=== PATIENT | male | born 1940 | race African-American/Black ===

== ENCOUNTER 2018-01-22 10:01 | Inpatient (IN) ==
[2018-01-22] MEDS ORDERED: PANTOPRAZOLE 40 MG VIAL IV STA (10:38)
[2018-01-22] MEDS ORDERED: SODIUM CHLORIDE 0.9% 1,000 ML IV STA ×2 (10:38→11:00)
[2018-01-22 11:09] LABS: Basophils % 0.2 % (0.0-0.8); Eosinophils # 0.1 10*3/uL (0.0-0.87); Eosinophils % 0.8 % (0.00-10.9); Hematocrit 28.2 VOL% (42.0-52.0); Hemoglobin 8.6 GM/DL (14.0-18.0); Immature Granulocytes % 0.6 %; Immature Granulocytes Absolute 0.04 #; Lymphocytes # 1.5 10*3/uL (1.4-4.0); Lymphocytes % 23.4 % (21.2-54.2); Mean Corpuscular HGB Conc 30.5 GM/DL (32-36); Mean Corpuscular Hemoglobin 31 PG (27-34); Mean Corpuscular Volume 101.1 FL (87-102); Mean Platelet Volume 10.8 FL (9.6-12.0); Monocytes # 0.3 10*3/uL (0.11-0.8); Monocytes % 4.4 % (1.7-12.7); NRBC # 0.05 10*3/uL; Neutrophils # 4.6 10*3/uL (1.4-7.4); Neutrophils % 70.6 % (38.7-73.9); Platelet Count 183 T/CUMM (130-400); Red Blood Count 2.79 MC/CUMM (3.8-5.5); Red Cell Distribution Width 16.7 % (9.3-17.3); White Blood Count 6.6 T/CUMM (4-12)
[2018-01-22 11:23] LABS: INR 1.1; PT Patient Result 11.4 SECS; Partial Thromboplastin Time 23.9 SECS (0-40)
[2018-01-22 11:40] LABS: Albumin 3.3 G/DL (3.4-5.0); Bilirubin,Total 0.7 MG/DL (0.2-1.0); Osmolality,Calculated 290.8 MOS/KG (273-304); Potassium 4.5 MMOL/L (3.5-5.1); Total Protein 6.9 G/DL (6.4-8.3)
[2018-01-22] MEDS ORDERED: ONDANSETRON 4 MG/2 ML VIAL IV PRN (13:25)
[2018-01-22] MEDS ORDERED: ACETAMINOPHEN 325 MG TABLET PO PRN (13:25)
[2018-01-22] MEDS: SODIUM CHLORIDE 0.9% 1,000 ML IV SCH (15:06)
[2018-01-22] MEDS: PANTOPRAZOLE 40 MG TABLET PO SCH (22:10)
[2018-01-23] MEDS: SODIUM CHLORIDE 0.9% 1,000 ML IV SCH (02:10)
[2018-01-23 05:50] LABS: Albumin 2.9 G/DL (3.4-5.0); Bilirubin,Total 1.2 MG/DL (0.2-1.0); Calcium 8.5 MG/DL (8.5-10.1); Osmolality,Calculated 287.8 MOS/KG (273-304); Total Protein 5.8 G/DL (6.4-8.3)
[2018-01-23 06:31] LABS: Basophils % 0.4 % (0.0-0.8); Eosinophils # 0.1 10*3/uL (0.0-0.87); Eosinophils % 1.7 % (0.00-10.9); Immature Granulocytes % 0.2 %; Immature Granulocytes Absolute 0.01 #; Lymphocytes # 1.5 10*3/uL (1.4-4.0); Lymphocytes % 32.9 % (21.2-54.2); Mean Corpuscular HGB Conc 30.4 GM/DL (32-36); Mean Corpuscular Hemoglobin 31 PG (27-34); Mean Corpuscular Volume 100.4 FL (87-102); Mean Platelet Volume 11.3 FL (9.6-12.0); Monocytes # 0.3 10*3/uL (0.11-0.8); Monocytes % 7.4 % (1.7-12.7); NRBC # 0.03 10*3/uL; Neutrophils # 2.6 10*3/uL (1.4-7.4); Neutrophils % 57.4 % (38.7-73.9); Platelet Count 153 T/CUMM (130-400); Red Blood Count 2.29 MC/CUMM (3.8-5.5); Red Cell Distribution Width 16.9 % (9.3-17.3); White Blood Count 4.6 T/CUMM (4-12)
[2018-01-23] MEDS: PANTOPRAZOLE 40 MG TABLET PO SCH ×2 (08:04→20:09)
[2018-01-23] MEDS ORDERED: SODIUM CHLORIDE 0.9% 1,000 ML IV PRN (08:12)
[2018-01-23] MEDS ORDERED: PANTOPRAZOLE 40 MG TABLET PO SCH (09:00)
[2018-01-23] MEDS: FERROUS SULFATE 325 MG TABLET PO SCH ×2 (12:43→22:20)
[2018-01-23] MEDS: ATORVASTATIN 80 MG TABLET PO SCH (12:44)
[2018-01-23 15:12] LABS: Hemoglobin 8.8 GM/DL (14.0-18.0)
[2018-01-23] MEDS ORDERED: PHENYLEPH PO SCH (21:00)
[2018-01-23] MEDS ORDERED: GUAIFEN PO SCH (21:00)
[2018-01-23] MEDS ORDERED: ACETAMINOPHN PO SCH (21:00)
[2018-01-24 04:32] LABS: Basophils % 0.2 % (0.0-0.8); Eosinophils # 0.1 10*3/uL (0.0-0.87); Eosinophils % 1.7 % (0.00-10.9); Hemoglobin 8.4 GM/DL (14.0-18.0); Immature Granulocytes % 0.6 %; Immature Granulocytes Absolute 0.03 #; Lymphocytes # 1.4 10*3/uL (1.4-4.0); Lymphocytes % 30.1 % (21.2-54.2); Mean Corpuscular HGB Conc 31.1 GM/DL (32-36); Mean Corpuscular Hemoglobin 30 PG (27-34); Mean Corpuscular Volume 95.4 FL (87-102); Mean Platelet Volume 11.1 FL (9.6-12.0); Monocytes # 0.4 10*3/uL (0.11-0.8); Monocytes % 7.6 % (1.7-12.7); NRBC # 0.02 10*3/uL; Neutrophils # 2.8 10*3/uL (1.4-7.4); Neutrophils % 59.8 % (38.7-73.9); Platelet Count 149 T/CUMM (130-400); Red Blood Count 2.83 MC/CUMM (3.8-5.5); Red Cell Distribution Width 17.1 % (9.3-17.3); White Blood Count 4.7 T/CUMM (4-12)
[2018-01-24 04:57] LABS: Calcium 8.2 MG/DL (8.5-10.1); Osmolality,Calculated 284.8 MOS/KG (273-304); Potassium 3.9 MMOL/L (3.5-5.1)
[2018-01-24] MEDS: POLYETHYLENE GLYCOL POWDER 17 GM PACK PO SCH (09:23)
[2018-01-24] MEDS: PANTOPRAZOLE 40 MG TABLET PO SCH ×2 (09:27→21:55)
[2018-01-24] MEDS: FERROUS SULFATE 325 MG TABLET PO SCH ×2 (09:27→21:55)
[2018-01-24] MEDS: ALLOPURINOL 300 MG TABLET PO SCH (09:27)
[2018-01-24] MEDS: ATORVASTATIN 80 MG TABLET PO SCH (09:27)
[2018-01-25 06:20] LABS: Basophils % 0.2 % (0.0-0.8); Eosinophils # 0.1 10*3/uL (0.0-0.87); Eosinophils % 1.8 % (0.00-10.9); Hematocrit 29.1 VOL% (42.0-52.0); Hemoglobin 9.1 GM/DL (14.0-18.0); Immature Granulocytes % 0.6 %; Immature Granulocytes Absolute 0.03 #; Lymphocytes # 1.5 10*3/uL (1.4-4.0); Lymphocytes % 29.8 % (21.2-54.2); Mean Corpuscular HGB Conc 31.3 GM/DL (32-36); Mean Corpuscular Hemoglobin 30 PG (27-34); Mean Platelet Volume 11.2 FL (9.6-12.0); Monocytes # 0.4 10*3/uL (0.11-0.8); Monocytes % 7.2 % (1.7-12.7); NRBC # 0.03 10*3/uL; Neutrophils # 3.1 10*3/uL (1.4-7.4); Neutrophils % 60.4 % (38.7-73.9); Platelet Count 167 T/CUMM (130-400); Red Blood Count 3.03 MC/CUMM (3.8-5.5); Red Cell Distribution Width 16.9 % (9.3-17.3); White Blood Count 5.1 T/CUMM (4-12)
[2018-01-25 06:29] LABS: Calcium 8.4 MG/DL (8.5-10.1); Osmolality,Calculated 284.8 MOS/KG (273-304)
[2018-01-25] MEDS: POLYETHYLENE GLYCOL POWDER 17 GM PACK PO SCH (08:41)
[2018-01-25] MEDS: FERROUS SULFATE 325 MG TABLET PO SCH (08:41)
[2018-01-25] MEDS: ATORVASTATIN 80 MG TABLET PO SCH (08:41)
[2018-01-25] MEDS: PANTOPRAZOLE 40 MG TABLET PO SCH (08:41)
[2018-01-25] MEDS: ALLOPURINOL 300 MG TABLET PO SCH (08:41)
[2018-01-25 14:34] VITALS: BP 145/78
== END 2018-01-25 14:30 | disposition home or self-care (01) | DRG 378 ==
LOC: N.ED 10:01 → N.EDINP 13:25 → N.5E 14:34
PROVIDERS: ADMIT Internal Medicine; ATTEND Internal Medicine

== ENCOUNTER 2018-04-12 23:11 | Inpatient (IN) ==
[2018-04-12] MEDS ORDERED: ASPIRIN 325 MG TABLET PO STA (23:29)
[2018-04-12] MEDS ORDERED: ALUM/MAG/SIMETH/LIDO VISC 1:1 30 ML BOTTLE PO STA (23:29)
[2018-04-12 23:41] LABS: Basophils % 0.1 % (0.0-0.8); Eosinophils # 0.1 10*3/uL (0.0-0.87); Eosinophils % 0.8 % (0.00-10.9); Hematocrit 35.6 VOL% (42.0-52.0); Hemoglobin 11.1 GM/DL (14.0-18.0); Immature Granulocytes % 0.5 %; Immature Granulocytes Absolute 0.04 #; Lymphocytes # 1.5 10*3/uL (1.4-4.0); Lymphocytes % 18.8 % (21.2-54.2); Mean Corpuscular HGB Conc 31.2 GM/DL (32-36); Mean Corpuscular Hemoglobin 31 PG (27-34); Mean Corpuscular Volume 97.8 FL (87-102); Mean Platelet Volume 12.1 FL (9.6-12.0); Monocytes # 0.3 10*3/uL (0.11-0.8); Monocytes % 4.3 % (1.7-12.7); Neutrophils % 75.5 % (38.7-73.9); Platelet Count 180 T/CUMM (130-400); Red Blood Count 3.64 MC/CUMM (3.8-5.5); Red Cell Distribution Width 17.5 % (9.3-17.3); White Blood Count 7.9 T/CUMM (4-12)
[2018-04-13 00:53] LABS: INR 1.4; PT Patient Result 15.5 SECS
[2018-04-13 01:16] LABS: Albumin 3.4 G/DL (3.4-5.0); Bilirubin,Total 1.2 MG/DL (0.2-1.0); Osmolality,Calculated 286.3 MOS/KG (273-304); Potassium 4.1 MMOL/L (3.5-5.1); Total Protein 7.1 G/DL (6.4-8.3)
[2018-04-13] MEDS ORDERED: PIPERACILLIN/TAZOBACTAM 3,375 MG in SODIUM CHLORIDE 0.9% 100 ML IV ONE (04:01)
[2018-04-13] MEDS ORDERED: ACETAMINOPHEN 325 MG TABLET PO PRN (05:05)
[2018-04-13] MEDS ORDERED: ONDANSETRON 4 MG/2 ML VIAL IV PRN (05:05)
[2018-04-13 05:16] LABS: Basophils % 0.2 % (0.0-0.8); Eosinophils % 0.2 % (0.00-10.9); Hematocrit 33.6 VOL% (42.0-52.0); Hemoglobin 10.6 GM/DL (14.0-18.0); Immature Granulocytes % 0.3 %; Immature Granulocytes Absolute 0.02 #; Lymphocytes # 1.2 10*3/uL (1.4-4.0); Lymphocytes % 19.2 % (21.2-54.2); Mean Corpuscular HGB Conc 31.5 GM/DL (32-36); Mean Corpuscular Hemoglobin 30 PG (27-34); Monocytes # 0.3 10*3/uL (0.11-0.8); Monocytes % 4.5 % (1.7-12.7); Neutrophils # 4.8 10*3/uL (1.4-7.4); Neutrophils % 75.6 % (38.7-73.9); Platelet Count 177 T/CUMM (130-400); Red Cell Distribution Width 17.5 % (9.3-17.3); White Blood Count 6.4 T/CUMM (4-12)
[2018-04-13 07:22] LABS: Albumin 3.3 G/DL (3.4-5.0); Bilirubin,Total 2.2 MG/DL (0.2-1.0); Calcium 9.4 MG/DL (8.5-10.1); Osmolality,Calculated 281.4 MOS/KG (273-304); Potassium 4.2 MMOL/L (3.5-5.1)
[2018-04-13] MEDS: PANTOPRAZOLE 40 MG TABLET PO SCH (08:44)
[2018-04-13] MEDS: CARVEDILOL 25 MG TABLET PO SCH ×2 (11:16→20:47)
[2018-04-13] MEDS: LOSARTAN 25 MG TABLET PO SCH (11:16)
[2018-04-13] MEDS: ALLOPURINOL 300 MG TABLET PO SCH (11:20)
[2018-04-13] MEDS: DEXTROSE 5% NACL 0.45% 1,000 ML IV SCH ×3 (11:27→20:51)
[2018-04-13] MEDS: PIPERACILLIN/TAZOBACTAM 3,375 MG in SODIUM CHLORIDE 0.9% 100 ML IV SCH ×2 (12:51→20:46)
[2018-04-13] MEDS: guaiFENesin 200 MG/10 ML UDCUP PO PRN ×2 (15:25→20:54)
[2018-04-14] MEDS: PIPERACILLIN/TAZOBACTAM 3,375 MG in SODIUM CHLORIDE 0.9% 100 ML IV SCH ×3 (04:33→21:10)
[2018-04-14 04:38] LABS: Basophils % 0.1 % (0.0-0.8); Eosinophils % 0.4 % (0.00-10.9); Hematocrit 32.2 VOL% (42.0-52.0); Hemoglobin 9.9 GM/DL (14.0-18.0); Immature Granulocytes % 0.4 %; Immature Granulocytes Absolute 0.03 #; Lymphocytes # 1.4 10*3/uL (1.4-4.0); Lymphocytes % 19.4 % (21.2-54.2); Mean Corpuscular HGB Conc 30.7 GM/DL (32-36); Mean Corpuscular Hemoglobin 30 PG (27-34); Mean Corpuscular Volume 96.4 FL (87-102); Monocytes # 0.6 10*3/uL (0.11-0.8); Monocytes % 7.7 % (1.7-12.7); Neutrophils # 5.1 10*3/uL (1.4-7.4); Platelet Count 152 T/CUMM (130-400); Red Blood Count 3.34 MC/CUMM (3.8-5.5); Red Cell Distribution Width 17.4 % (9.3-17.3); White Blood Count 7.1 T/CUMM (4-12)
[2018-04-14 05:06] LABS: Albumin 2.9 G/DL (3.4-5.0); Bilirubin,Total 1.3 MG/DL (0.2-1.0); Calcium 8.5 MG/DL (8.5-10.1); Osmolality,Calculated 284.3 MOS/KG (273-304); Potassium 3.8 MMOL/L (3.5-5.1); Total Protein 6.2 G/DL (6.4-8.3)
[2018-04-14] MEDS: PANTOPRAZOLE 40 MG TABLET PO SCH (08:47)
[2018-04-14] MEDS: LOSARTAN 25 MG TABLET PO SCH (08:47)
[2018-04-14] MEDS: guaiFENesin 200 MG/10 ML UDCUP PO PRN ×3 (08:47→21:12)
[2018-04-14] MEDS: CARVEDILOL 25 MG TABLET PO SCH ×2 (08:47→21:12)
[2018-04-14] MEDS: ALLOPURINOL 300 MG TABLET PO SCH (08:47)
[2018-04-14] MEDS: DEXTROSE 5% NACL 0.45% 1,000 ML IV SCH ×2 (09:17→19:06)
[2018-04-14] MEDS ORDERED: MAGNESIUM SULF RIDER 2 GM in PREMIX 1 EACH IV PRN (13:29)
[2018-04-14] MEDS: POTASSIUM CHLORIDE 20 MEQ TABLET PO SCH (16:32)
[2018-04-14] MEDS: ASCORBIC ACID 500 MG TABLET PO SCH ×2 (16:32→21:11)
[2018-04-15] MEDS: PIPERACILLIN/TAZOBACTAM 3,375 MG in SODIUM CHLORIDE 0.9% 100 ML IV SCH ×3 (04:05→20:10)
[2018-04-15] MEDS: guaiFENesin 200 MG/10 ML UDCUP PO PRN (04:07)
[2018-04-15 04:50] LABS: Basophils % 0.1 % (0.0-0.8); Eosinophils # 0.1 10*3/uL (0.0-0.87); Eosinophils % 0.7 % (0.00-10.9); Hematocrit 29.3 VOL% (42.0-52.0); Hemoglobin 9.1 GM/DL (14.0-18.0); Immature Granulocytes % 0.4 %; Immature Granulocytes Absolute 0.03 #; Lymphocytes # 1.4 10*3/uL (1.4-4.0); Mean Corpuscular HGB Conc 31.1 GM/DL (32-36); Mean Corpuscular Hemoglobin 30 PG (27-34); Mean Corpuscular Volume 96.7 FL (87-102); Mean Platelet Volume 12.4 FL (9.6-12.0); Monocytes # 0.6 10*3/uL (0.11-0.8); Monocytes % 7.7 % (1.7-12.7); NRBC # 0.02 10*3/uL; Neutrophils # 5.4 10*3/uL (1.4-7.4); Neutrophils % 72.1 % (38.7-73.9); Platelet Count 151 T/CUMM (130-400); Red Blood Count 3.03 MC/CUMM (3.8-5.5); Red Cell Distribution Width 17.3 % (9.3-17.3); White Blood Count 7.4 T/CUMM (4-12)
[2018-04-15 05:20] LABS: Albumin 2.7 G/DL (3.4-5.0); Bilirubin,Total 2.5 MG/DL (0.2-1.0); Calcium 8.3 MG/DL (8.5-10.1); Osmolality,Calculated 284.1 MOS/KG (273-304); Potassium 3.9 MMOL/L (3.5-5.1)
[2018-04-15] MEDS: ASCORBIC ACID 500 MG TABLET PO SCH ×2 (08:42→20:05)
[2018-04-15] MEDS: PANTOPRAZOLE 40 MG TABLET PO SCH (08:45)
[2018-04-15] MEDS: POTASSIUM CHLORIDE 20 MEQ TABLET PO SCH (08:46)
[2018-04-15] MEDS: CARVEDILOL 25 MG TABLET PO SCH ×2 (08:46→20:05)
[2018-04-15] MEDS: LOSARTAN 25 MG TABLET PO SCH (08:46)
[2018-04-15] MEDS: ALLOPURINOL 300 MG TABLET PO SCH (08:46)
[2018-04-15] MEDS: DEXTROSE 5% NACL 0.45% 1,000 ML IV SCH ×3 (09:00→21:17)
[2018-04-16] MEDS: PIPERACILLIN/TAZOBACTAM 3,375 MG in SODIUM CHLORIDE 0.9% 100 ML IV SCH ×2 (06:30→15:30)
[2018-04-16] MEDS: DEXTROSE 5% NACL 0.45% 1,000 ML IV SCH (06:45)
[2018-04-16] MEDS ORDERED: LACTATED RINGERS 500 ML IV ONE (08:14)
[2018-04-16 08:55] LABS: PT Patient Result 11.3 SECS
[2018-04-16] MEDS ORDERED: fentaNYL 100 MCG/2 ML VIAL ONE ×2 (09:00→10:05)
[2018-04-16] MEDS ORDERED: PHENYLEPHRINE 1 MG/10 ML SYRINGE IV ONE (09:00)
[2018-04-16] MEDS ORDERED: ONDANSETRON 4 MG/2 ML VIAL ONE (09:00)
[2018-04-16] MEDS ORDERED: ROCURONIUM 100 MG/10 ML VIAL IV ONE (09:00)
[2018-04-16] MEDS ORDERED: SUCCINYLCHOLINE 200 MG/10 ML VIAL ONE (09:00)
[2018-04-16] MEDS ORDERED: LIDOCAINE 2% 5 ML VIAL ONE (09:00)
[2018-04-16] MEDS: CARVEDILOL 25 MG TABLET PO SCH ×2 (09:30→20:59)
[2018-04-16] MEDS: LOSARTAN 25 MG TABLET PO SCH (09:30)
[2018-04-16] MEDS: PANTOPRAZOLE 40 MG TABLET PO SCH (09:32)
[2018-04-16] MEDS: ALLOPURINOL 300 MG TABLET PO SCH (09:32)
[2018-04-16] MEDS: POTASSIUM CHLORIDE 20 MEQ TABLET PO SCH (09:32)
[2018-04-16] MEDS: ASCORBIC ACID 500 MG TABLET PO SCH ×2 (09:32→20:59)
[2018-04-16] MEDS ORDERED: INDOMETHACIN SUPP 50 MG SUPP RECTAL ONE (10:54)
[2018-04-16] MEDS ORDERED: ALBUTEROL/IPRATROPIUM 3 ML NEB RESP TX STA (13:32)
[2018-04-16] MEDS ORDERED: SIMETHICONE CHEW 80 MG TABLET PO PRN (16:14)
[2018-04-16 19:04] LABS: Troponin I 0.084 NG/ML (0.00-0.045)
[2018-04-17] MEDS: PIPERACILLIN/TAZOBACTAM 3,375 MG in SODIUM CHLORIDE 0.9% 100 ML IV SCH ×4 (00:15→23:08)
[2018-04-17] MEDS: DEXTROSE 5% NACL 0.45% 1,000 ML IV SCH ×4 (01:29→22:20)
[2018-04-17 05:38] LABS: Basophils % 0.2 % (0.0-0.8); Eosinophils # 0.1 10*3/uL (0.0-0.87); Eosinophils % 1.4 % (0.00-10.9); Hematocrit 30.4 VOL% (42.0-52.0); Hemoglobin 9.3 GM/DL (14.0-18.0); Immature Granulocytes % 0.4 %; Immature Granulocytes Absolute 0.02 #; Lymphocytes # 0.9 10*3/uL (1.4-4.0); Lymphocytes % 17.9 % (21.2-54.2); Mean Corpuscular HGB Conc 30.6 GM/DL (32-36); Mean Corpuscular Hemoglobin 30 PG (27-34); Mean Corpuscular Volume 97.1 FL (87-102); Mean Platelet Volume 12.3 FL (9.6-12.0); Monocytes # 0.4 10*3/uL (0.11-0.8); Monocytes % 7.3 % (1.7-12.7); Neutrophils # 3.6 10*3/uL (1.4-7.4); Neutrophils % 72.8 % (38.7-73.9); Platelet Count 151 T/CUMM (130-400); Red Blood Count 3.13 MC/CUMM (3.8-5.5); Red Cell Distribution Width 17.4 % (9.3-17.3); White Blood Count 4.9 T/CUMM (4-12)
[2018-04-17 06:03] LABS: Albumin 2.7 G/DL (3.4-5.0); Bilirubin,Total 1.5 MG/DL (0.2-1.0); Calcium 8.5 MG/DL (8.5-10.1); Total Protein 6.5 G/DL (6.4-8.3)
[2018-04-17] MEDS: LOSARTAN 25 MG TABLET PO SCH (09:38)
[2018-04-17] MEDS: CARVEDILOL 25 MG TABLET PO SCH ×2 (09:38→22:17)
[2018-04-17] MEDS: PANTOPRAZOLE 40 MG TABLET PO SCH (09:39)
[2018-04-17] MEDS: POTASSIUM CHLORIDE 20 MEQ TABLET PO SCH (09:39)
[2018-04-17] MEDS: ALLOPURINOL 300 MG TABLET PO SCH (09:39)
[2018-04-17] MEDS: ASCORBIC ACID 500 MG TABLET PO SCH ×2 (09:39→22:17)
[2018-04-17] MEDS ORDERED: LIDOCAINE 1%/EPI INJ 20 ML VIAL ONE (10:26)
[2018-04-17] MEDS ORDERED: TISSUE ADHESIVE 1 EACH APPLICATOR TOP ONE (10:26)
[2018-04-17] MEDS ORDERED: BUPIVACAINE 0.5% 50 ML VIAL ONE (10:26)
[2018-04-17] MEDS: FUROSEMIDE 40 MG TABLET PO SCH (15:41)
[2018-04-17] MEDS: SPIRONOLACTONE 25 MG TABLET PO SCH (15:41)
[2018-04-17] MEDS: guaiFENesin 200 MG/10 ML UDCUP PO PRN (17:50)
[2018-04-18 05:19] LABS: Basophils % 0.2 % (0.0-0.8); Eosinophils # 0.1 10*3/uL (0.0-0.87); Eosinophils % 2.4 % (0.00-10.9); Hematocrit 28.7 VOL% (42.0-52.0); Hemoglobin 8.9 GM/DL (14.0-18.0); Immature Granulocytes % 0.2 %; Immature Granulocytes Absolute 0.01 #; Lymphocytes # 1.1 10*3/uL (1.4-4.0); Lymphocytes % 25.2 % (21.2-54.2); Mean Corpuscular Hemoglobin 30 PG (27-34); Mean Corpuscular Volume 95.7 FL (87-102); Mean Platelet Volume 11.8 FL (9.6-12.0); Monocytes # 0.3 10*3/uL (0.11-0.8); Monocytes % 7.2 % (1.7-12.7); Neutrophils # 2.7 10*3/uL (1.4-7.4); Neutrophils % 64.8 % (38.7-73.9); Platelet Count 163 T/CUMM (130-400); Red Cell Distribution Width 17.2 % (9.3-17.3); White Blood Count 4.2 T/CUMM (4-12)
[2018-04-18 05:29] LABS: Calcium 8.4 MG/DL (8.5-10.1); Osmolality,Calculated 282.1 MOS/KG (273-304); Potassium 3.6 MMOL/L (3.5-5.1)
[2018-04-18] MEDS: PIPERACILLIN/TAZOBACTAM 3,375 MG in SODIUM CHLORIDE 0.9% 100 ML IV SCH ×3 (06:26→22:39)
[2018-04-18] MEDS: DEXTROSE 5% NACL 0.45% 1,000 ML IV SCH ×2 (07:15→17:00)
[2018-04-18] MEDS ORDERED: REGADENOSON 0.4 MG/5 ML SYRINGE IV ONE (11:59)
[2018-04-18] MEDS: FUROSEMIDE 40 MG TABLET PO SCH ×2 (13:24→19:21)
[2018-04-18] MEDS: SPIRONOLACTONE 25 MG TABLET PO SCH (13:24)
[2018-04-18] MEDS: CARVEDILOL 25 MG TABLET PO SCH ×2 (13:25→20:31)
[2018-04-18] MEDS: LOSARTAN 25 MG TABLET PO SCH (13:25)
[2018-04-18] MEDS: PANTOPRAZOLE 40 MG TABLET PO SCH (13:26)
[2018-04-18] MEDS: POTASSIUM CHLORIDE 20 MEQ TABLET PO SCH (13:26)
[2018-04-18] MEDS: ASCORBIC ACID 500 MG TABLET PO SCH ×2 (13:26→20:31)
[2018-04-18] MEDS: ALLOPURINOL 300 MG TABLET PO SCH (13:27)
[2018-04-19 04:27] LABS: Basophils % 0.2 % (0.0-0.8); Eosinophils # 0.1 10*3/uL (0.0-0.87); Eosinophils % 1.9 % (0.00-10.9); Hemoglobin 8.9 GM/DL (14.0-18.0); Immature Granulocytes % 0.4 %; Immature Granulocytes Absolute 0.02 #; Lymphocytes # 1.2 10*3/uL (1.4-4.0); Lymphocytes % 25.4 % (21.2-54.2); Mean Corpuscular HGB Conc 30.7 GM/DL (32-36); Mean Corpuscular Hemoglobin 29 PG (27-34); Mean Corpuscular Volume 95.1 FL (87-102); Monocytes # 0.3 10*3/uL (0.11-0.8); Monocytes % 6.7 % (1.7-12.7); NRBC # 0.02 10*3/uL; Neutrophils # 3.1 10*3/uL (1.4-7.4); Neutrophils % 65.4 % (38.7-73.9); Platelet Count 180 T/CUMM (130-400); Red Blood Count 3.05 MC/CUMM (3.8-5.5); Red Cell Distribution Width 17.2 % (9.3-17.3); White Blood Count 4.8 T/CUMM (4-12)
[2018-04-19 04:50] LABS: Albumin 2.8 G/DL (3.4-5.0); Bilirubin,Total 1.2 MG/DL (0.2-1.0); Calcium 8.8 MG/DL (8.5-10.1); Potassium 3.2 MMOL/L (3.5-5.1); Total Protein 6.6 G/DL (6.4-8.3)
[2018-04-19] MEDS ORDERED: FAMOTIDINE 20 MG TABLET PO ONE (06:00)
[2018-04-19] MEDS: PIPERACILLIN/TAZOBACTAM 3,375 MG in SODIUM CHLORIDE 0.9% 100 ML IV SCH ×3 (06:35→22:26)
[2018-04-19] MEDS: FUROSEMIDE 40 MG TABLET PO SCH ×2 (08:00→16:10)
[2018-04-19] MEDS: CARVEDILOL 25 MG TABLET PO SCH ×2 (08:45→20:35)
[2018-04-19] MEDS: LOSARTAN 25 MG TABLET PO SCH (08:45)
[2018-04-19] MEDS: ASCORBIC ACID 500 MG TABLET PO SCH ×2 (09:00→20:35)
[2018-04-19] MEDS: LACTATED RINGERS 1,000 ML IV SCH (09:35)
[2018-04-19] MEDS ORDERED: BUPIVACAINE 0.5% 50 ML VIAL ONE (09:42)
[2018-04-19] MEDS ORDERED: LIDOCAINE 1%/EPI INJ 20 ML VIAL ONE (09:42)
[2018-04-19] MEDS ORDERED: TISSUE ADHESIVE 1 EACH APPLICATOR TOP ONE (09:43)
[2018-04-19] MEDS ORDERED: SEVOFLURANE 1 UNIT/15 MINUTE INH ONE (11:34)
[2018-04-19] MEDS ORDERED: PROPOFOL 200 MG/20 ML VIAL IV ONE (11:34)
[2018-04-19] MEDS ORDERED: fentaNYL 100 MCG/2 ML VIAL ONE (11:34)
[2018-04-19] MEDS ORDERED: NEOSTIGMINE 10 MG/10 ML VIAL ONE (11:35)
[2018-04-19] MEDS ORDERED: PHENYLEPHRINE 1 MG/10 ML SYRINGE IV ONE (11:35)
[2018-04-19] MEDS ORDERED: ROCURONIUM 100 MG/10 ML VIAL IV ONE (11:35)
[2018-04-19] MEDS ORDERED: ONDANSETRON 4 MG/2 ML VIAL ONE (11:35)
[2018-04-19] MEDS ORDERED: GLYCOPYRROLATE 0.4 MG/2 ML VIAL ONE ×2 (11:35)
[2018-04-19] MEDS: MORPHINE 4 MG/1 ML VIAL IV PRN ×2 (12:47→17:30)
[2018-04-19] MEDS: SPIRONOLACTONE 25 MG TABLET PO SCH (15:52)
[2018-04-19] MEDS: PANTOPRAZOLE 40 MG TABLET PO SCH (15:53)
[2018-04-19] MEDS: POTASSIUM CHLORIDE 20 MEQ TABLET PO SCH (15:53)
[2018-04-19] MEDS: ALLOPURINOL 300 MG TABLET PO SCH (15:53)
[2018-04-19] MEDS: DEXTROSE 5% NACL 0.45% 1,000 ML IV SCH (20:39)
[2018-04-20] MEDS: PIPERACILLIN/TAZOBACTAM 3,375 MG in SODIUM CHLORIDE 0.9% 100 ML IV SCH ×2 (06:07→14:23)
[2018-04-20] MEDS: CARVEDILOL 25 MG TABLET PO SCH (08:37)
[2018-04-20] MEDS: PANTOPRAZOLE 40 MG TABLET PO SCH (08:37)
[2018-04-20] MEDS: ALLOPURINOL 300 MG TABLET PO SCH (08:37)
[2018-04-20] MEDS: LOSARTAN 25 MG TABLET PO SCH (08:37)
[2018-04-20] MEDS: POTASSIUM CHLORIDE 20 MEQ TABLET PO SCH (08:37)
[2018-04-20] MEDS: ASCORBIC ACID 500 MG TABLET PO SCH (08:37)
[2018-04-20] MEDS: SPIRONOLACTONE 25 MG TABLET PO SCH (08:38)
[2018-04-20] MEDS: FUROSEMIDE 40 MG TABLET PO SCH (08:38)
[2018-04-20] MEDS ORDERED: POTASSIUM CHLORIDE 20 MEQ TABLET PO ONE (08:51)
[2018-04-20] MEDS ORDERED: ASPIRIN CHEW 81 MG TABLET PO SCH (09:00)
[2018-04-20 09:04] LABS: Basophils % 0.2 % (0.0-0.8); Eosinophils # 0.1 10*3/uL (0.0-0.87); Eosinophils % 1.1 % (0.00-10.9); Hemoglobin 10.2 GM/DL (14.0-18.0); Immature Granulocytes % 0.4 %; Immature Granulocytes Absolute 0.02 #; Lymphocytes # 1.2 10*3/uL (1.4-4.0); Lymphocytes % 23.2 % (21.2-54.2); Mean Corpuscular HGB Conc 30.9 GM/DL (32-36); Mean Corpuscular Hemoglobin 30 PG (27-34); Mean Corpuscular Volume 96.2 FL (87-102); Mean Platelet Volume 11.2 FL (9.6-12.0); Monocytes # 0.3 10*3/uL (0.11-0.8); Neutrophils # 3.7 10*3/uL (1.4-7.4); Neutrophils % 69.1 % (38.7-73.9); Platelet Count 206 T/CUMM (130-400); Red Blood Count 3.43 MC/CUMM (3.8-5.5); Red Cell Distribution Width 17.2 % (9.3-17.3); White Blood Count 5.3 T/CUMM (4-12)
[2018-04-20 09:24] LABS: Bilirubin,Total 0.7 MG/DL (0.2-1.0); Calcium 8.8 MG/DL (8.5-10.1); Osmolality,Calculated 280.4 MOS/KG (273-304); Potassium 3.6 MMOL/L (3.5-5.1); Total Protein 7.3 G/DL (6.4-8.3)
[2018-04-20] MEDS: LACTATED RINGERS 1,000 ML IV SCH (11:06)
[2018-04-20 16:17] VITALS: BP 124/75
[2018-04-20] MEDS ORDERED: MAGNESIUM OXIDE 400 MG TABLET PO SCH (21:00)
== END 2018-04-20 16:22 | disposition home or self-care (01) | DRG 417 ==
LOC: N.ED 23:11 → N.EDINP 04-13 05:03 → N.3E 04-13 05:42
PROVIDERS: ADMIT Surgery; ATTEND Surgery
PROC: ERCPWSP (ICD-10-PCS; 2018-04-16 11:00)
PROC: LAPCHOL (2018-04-17 11:10)

== ENCOUNTER 2019-11-26 22:12 | Observation (INO) ==
[2019-11-27] MEDS ORDERED: ONDANSETRON 4 MG/2 ML VIAL IV STA (00:08)
[2019-11-27] MEDS ORDERED: MECLIZINE 25 MG TABLET PO STA (00:08)
[2019-11-27 00:16] LABS: Basophils % 0.2 % (0.0-0.8); Eosinophils % 0.4 % (0.00-10.9); Hematocrit 31.9 VOL% (42.0-52.0); Immature Granulocytes % 0.4 %; Immature Granulocytes Absolute 0.02 #; Lymphocytes # 1.3 10*3/uL (1.4-4.0); Mean Corpuscular HGB Conc 31.3 GM/DL (32-36); Mean Corpuscular Volume 102.9 FL (87-102); Mean Platelet Volume 11.7 FL (9.6-12.0); Monocytes % 5.3 % (1.7-12.7); NRBC # 0.05 10*3/uL; Neutrophils % 70.7 % (38.7-73.9); Platelet Count 164 T/CUMM (130-400); Red Cell Distribution Width 18.9 % (9.3-17.3); White Blood Count 5.6 T/CUMM (4-12)
[2019-11-27 00:30] LABS: INR 1.1; PT Patient Result 11.9 SECS (9.8-11.9)
[2019-11-27 00:38] LABS: Albumin 3.5 G/DL (3.4-5.0); Bilirubin,Total 0.8 MG/DL (0.2-1.0); Calcium 9.5 MG/DL (8.5-10.1); Total Protein 7.9 G/DL (6.4-8.3)
[2019-11-27] MEDS ORDERED: FUROSEMIDE 40 MG/4 ML VIAL IV STA (01:03)
[2019-11-27 01:59] LABS: Bacteria,Urine Occasional /HPF (Few); Bilirubin,Urine Negative (Negative); Blood, Urine Negative (Negative); Glucose,Urine (UA) Negative (Negative); Hyaline Casts,Urine 1 /LPF (0-3); Ketones,Urine Negative (Negative); Mucus,Urine Occasional /LPF (Occasional); Nitrite,Urine Negative (Negative); Protein,Urine Negative; RBC,Urine 2 /HPF (0-4); Sperm,Urine Occasional /HPF (Negative); Squamous Epithelial Cell,Urine Occasional /HPF (0-10); Urine Appearance CLEAR (Clear); Urine Color Yellow (Yellow); Urine Specific Gravity 1.017 (1.001-1.035); WBC,Urine 2 /HPF (0-6)
[2019-11-27] MEDS ORDERED: ACETAMINOPHEN 325 MG TABLET PO PRN (04:39)
[2019-11-27] MEDS ORDERED: ONDANSETRON 4 MG/2 ML VIAL IV PRN (04:39)
[2019-11-27] MEDS ORDERED: DOCUSATE SODIUM 100 MG CAPSULE PO PRN (04:39)
[2019-11-27 07:32] LABS: Risk Ratio 1.88; VLDL CHOLESTEROL 10.2 MG/DL
[2019-11-27] MEDS: ENOXAPARIN 40 MG/0.4 ML SYRINGE SUBCUT SCH (09:50)
[2019-11-27] MEDS: ASPIRIN EC 325 MG TABLET PO SCH (09:51)
[2019-11-27] MEDS: carvediloL 3.125 MG TABLET PO SCH ×2 (14:04→21:55)
[2019-11-27 14:44] LABS: Folate > 24.0 NG/ML (5.4-24.0); Vitamin B12 1808 PG/ML (211-911)
[2019-11-27] MEDS: FERROUS SULFATE 325 MG TABLET PO SCH ×2 (18:38→21:55)
[2019-11-27] MEDS: ATORVASTATIN 80 MG TABLET PO SCH (21:55)
[2019-11-28] MEDS: ENOXAPARIN 40 MG/0.4 ML SYRINGE SUBCUT SCH (05:15)
[2019-11-28 05:38] LABS: Basophils % 0.2 % (0.0-0.8); Eosinophils % 0.9 % (0.00-10.9); Hematocrit 30.5 VOL% (42.0-52.0); Hemoglobin 9.9 GM/DL (14.0-18.0); Immature Granulocytes % 0.4 %; Immature Granulocytes Absolute 0.02 #; Lymphocytes # 1.5 10*3/uL (1.4-4.0); Lymphocytes % 32.4 % (21.2-54.2); Mean Corpuscular HGB Conc 32.5 GM/DL (32-36); Mean Corpuscular Volume 99.7 FL (87-102); Mean Platelet Volume 11.6 FL (9.6-12.0); Monocytes % 6.4 % (1.7-12.7); NRBC # 0.04 10*3/uL; Neutrophils % 59.7 % (38.7-73.9); Platelet Count 174 T/CUMM (130-400); Red Blood Count 3.06 MC/CUMM (3.8-5.5); Red Cell Distribution Width 18.4 % (9.3-17.3); White Blood Count 4.7 T/CUMM (4-12)
[2019-11-28 06:32] LABS: Albumin 3.2 G/DL (3.4-5.0); Bilirubin,Total 1.7 MG/DL (0.2-1.0); Calcium 9.3 MG/DL (8.5-10.1); Osmolality,Calculated 281.3 MOS/KG (273-304); Thyroid Stimulating Hormone 1.28 uIU/ml (0.358-3.74)
[2019-11-28] MEDS: ASPIRIN EC 325 MG TABLET PO SCH (09:00)
[2019-11-28] MEDS: LOSARTAN 25 MG TABLET PO SCH (09:00)
[2019-11-28] MEDS: FERROUS SULFATE 325 MG TABLET PO SCH ×3 (09:00→21:35)
[2019-11-28] MEDS: allopurinoL 300 MG TABLET PO SCH (09:00)
[2019-11-28] MEDS: carvediloL 3.125 MG TABLET PO SCH ×2 (09:01→21:35)
[2019-11-28] MEDS: SPIRONOLACTONE 25 MG TABLET PO SCH (17:22)
[2019-11-28] MEDS: APIXABAN 5 MG TABLET PO SCH (21:34)
[2019-11-28] MEDS: ATORVASTATIN 80 MG TABLET PO SCH (21:35)
[2019-11-29 06:12] LABS: Eosinophils # 0.1 10*3/uL (0.0-0.87); Eosinophils % 1.3 % (0.00-10.9); Hematocrit 31.5 VOL% (42.0-52.0); Immature Granulocytes % 0.3 %; Immature Granulocytes Absolute 0.01 #; Lymphocytes # 1.1 10*3/uL (1.4-4.0); Lymphocytes % 29.9 % (21.2-54.2); Mean Corpuscular HGB Conc 31.7 GM/DL (32-36); Mean Corpuscular Volume 100.6 FL (87-102); Monocytes % 6.3 % (1.7-12.7); NRBC # 0.03 10*3/uL; Neutrophils % 62.2 % (38.7-73.9); Platelet Count 173 T/CUMM (130-400); Red Blood Count 3.13 MC/CUMM (3.8-5.5); Red Cell Distribution Width 18.4 % (9.3-17.3); White Blood Count 3.8 T/CUMM (4-12)
[2019-11-29 06:36] LABS: Calcium 8.8 MG/DL (8.5-10.1); Osmolality,Calculated 285.1 MOS/KG (273-304)
[2019-11-29 08:30] VITALS: BP 129/74
[2019-11-29] MEDS: carvediloL 3.125 MG TABLET PO SCH (09:30)
[2019-11-29] MEDS: SPIRONOLACTONE 25 MG TABLET PO SCH (09:30)
[2019-11-29] MEDS: allopurinoL 300 MG TABLET PO SCH (09:30)
[2019-11-29] MEDS: FERROUS SULFATE 325 MG TABLET PO SCH (09:30)
[2019-11-29] MEDS: APIXABAN 5 MG TABLET PO SCH (09:30)
[2019-11-29] MEDS: LOSARTAN 25 MG TABLET PO SCH (09:30)
[2019-11-29] MEDS: ASPIRIN EC 325 MG TABLET PO SCH (09:30)
== END 2019-11-29 12:57 | disposition home health service (06) ==
LOC: N.ED 22:12 → N.EDINP 22:12 → N.TELES 11-27 05:52 → N.TELEN 11-28 15:02
PROVIDERS: ADMIT Internal Medicine; ATTEND Internal Medicine